=== PATIENT | female | born 1970 | race Caucasian/White ===

== ENCOUNTER 2021-09-01 11:18 | Outpatient (CLI) | payer OTHER, SELFPAY | END 2021-09-01 23:59 | disposition short-term general hospital (02) | LOC: BIMLAB 11:22 | PROVIDERS: Visit Provider Student in an Organized Health Care Education/Training Program | DX: Z20.822 Contact with and (suspected) exposure to COVID-19 (principal); Z86.16 Personal history of COVID-19 | CPT/HCPCS: 36415; 86769 ==